=== PATIENT | female | born 2005 | race African-American/Black ===

== ENCOUNTER 2024-09-12 16:42 | Emergency (ER) | payer OTHER ==
[2024-09-12 16:53] VITALS: BP 90/52; PULSE 97; RESP 20; TEMP 98.9; BMI 24.0
[2024-09-12] MEDS ORDERED: LIDOCAINE HCL 1%, 10 MG/ML (20ML VIAL) ONE (18:45)
[2024-09-12] MEDS: LIDOCAINE HCL 1%, 10 MG/ML (50 mL VIAL) SQ ONE (18:49)
[2024-09-12] MEDS: BACITRACIN 0.9 GM PACKET TP ONE (19:25)
[2024-09-12] MEDS ORDERED: BACITRACIN ZINC 15 GM TUBE TOPICAL OINTMENT ONE (19:50)
== END 2024-09-12 19:57 | disposition home or self-care (01) ==
LOC: JER 16:42
PROC: 0H98XZZ Drainage of Buttock Skin, External Approach (ICD-10-PCS; principal; 2024-09-12)
DX: L02.31 Cutaneous abscess of buttock (principal)
CPT/HCPCS: 99284-25

== ENCOUNTER 2024-09-30 22:59 | Emergency (ER) | payer OTHER ==
[2024-09-30 23:23] VITALS: RESP 18; BMI 24.0
[2024-09-30] MEDS ORDERED: ONDANSETRON 4 MG/2 ML VIAL ONE (23:46)
[2024-09-30] MEDS ORDERED: ACETAMINOPHEN INJECTION 100 ML ONE (23:46)
[2024-10-01] MEDS: SODIUM CHLORIDE 0.9% 500 ML INFUS.BAG IV ONE (00:06)
[2024-10-01] MEDS: ACETAMINOPHEN 1000 MG/100 ML BAG IVPB ONE (00:06)
[2024-10-01] MEDS: ONDANSETRON 4 MG/2 ML VIAL IVPUSH ONE (00:08)
[2024-10-01 00:11] LABS: ABSOLUTE IMMATURE GRANULOCYTES 0.04 x10^3/uL (0.0-0.031); BASOPHILS # 0.05 x10^3/uL (0.01-0.08); EOSINOPHIL % 0.6 % (0.7-5.8); EOSINOPHILS # 0.06 x10^3/uL (0.04-0.36); HEMATOCRIT 43.1 % (34.1-44.9); HEMOGLOBIN 14.4 g/dL (11.2-15.7); MCHC 33.4 g/dl (32.2-35.5); MEAN PLT VOLUME 9.7 fl (9.4-12.3); MONOCYTE # 0.87 x10^3/uL (0.24-0.86); MONOCYTE % 8.5 % (4.7-12.5); PLATELET COUNT 376 x10^3/uL (182-369)
[2024-10-01 00:15] LABS: EPI CELLS >36 /uL (0-25.1); HYALINE CASTS 3 /uL (0-3.1); URINE APPEARANCE TURBID; URINE BACTERIA 1479 /uL (0-1359); URINE BILIRUBIN NEGATIVE (NEGATIVE); URINE COLOR YELLOW; URINE GLUCOSE (UA) NEGATIVE (NEGATIVE); URINE KETONE 3+ (NEGATIVE); URINE LEUK ESTERASE TRACE (NEGATIVE); URINE NITRITE NEGATIVE (NEGATIVE); URINE PROTEIN 1+ (NEGATIVE); URINE RBC 36 /uL (0-23.9); URINE WBC 65 /uL (0-25.8)
[2024-10-01 00:22] LABS: INR 1.19 (0.83-1.09); PROTHROMBIN TIME (PATIENT) 13.1 SEC (9.7-13.0)
[2024-10-01 00:24] LABS: ACTIVATED PTT 25.6 SECONDS (25.2-36.5)
[2024-10-01 00:30] LABS: ALBUMIN 4.5 g/dl (3.4-5.0); BLOOD UREA NITROGEN 7.8 mg/dL (7-18); MAGNESIUM 2.3 mg/dL (1.8-2.4)
[2024-10-01 00:34] LABS: BILIRUBIN,TOTAL 1.2 mg/dL (0.2-1)
[2024-10-01 00:35] LABS: TOT PROT 7.9 g/dl (6.4-8.2)
[2024-10-01 02:40] LABS: POTASSIUM 3.2 mmol/L (3.5-5.1)
[2024-10-01] MEDS: DEXTROSE 5%-WATER - 1,000 ML IV SCH (04:10)
[2024-10-01] MEDS: KETOROLAC TROMETHAMINE 15 MG/ML VIAL IVPUSH ONE (04:10)
[2024-10-01] MEDS ORDERED: KETOROLAC TROMETHAMINE 15 MG/ML VIAL ONE (04:11)
[2024-10-01 06:09] VITALS: BP 113/76; PULSE 50; TEMP 99.3
== END 2024-10-01 09:15 | disposition home or self-care (01) ==
LOC: JER 22:59
PROC: 3E033NZ Introduction of Analgesics, Hypnotics, Sedatives into Peripheral Vein, Percutaneous Approach (ICD-10-PCS; principal; 2024-09-30)
PROC: 3E033GC Introduction of Other Therapeutic Substance into Peripheral Vein, Percutaneous Approach (ICD-10-PCS; 2024-09-30)
PROC: 3E0333Z Introduction of Anti-inflammatory into Peripheral Vein, Percutaneous Approach (ICD-10-PCS; 2024-10-01)
DX: R10.84 Generalized abdominal pain (principal); R11.2 Nausea with vomiting, unspecified; R55 Syncope and collapse; R63.0 Anorexia; R10.31 Right lower quadrant pain
CPT/HCPCS: 36415; 74177-TC; 76830-TC; 80053; 81003; 83690; 83735; 84703; 85025; 85610; 85730; 86850; 86900; 86901; 87086; 93005; 93010; 99285-25; J0131

== ENCOUNTER 2025-01-10 17:35 | Emergency (ER) | payer OTHER ==
[2025-01-10 17:45] VITALS: TEMP 98.4; BMI 25.7
[2025-01-10] MEDS: LACTATED RINGERS SOLUTION 1000 ML INFUS.BAG IV ONE (18:50)
[2025-01-10 18:59] LABS: ABSOLUTE IMMATURE GRANULOCYTES 0.03 x10^3/uL (0.0-0.031); BASOPHILS # 0.03 x10^3/uL (0.01-0.08); BG HCT 45.0 % (32.4-45.2); EOSINOPHIL % 0.2 % (0.7-5.8); EOSINOPHILS # 0.02 x10^3/uL (0.04-0.36); MCHC 33.6 g/dl (32.2-35.5); MEAN CELL VOLUME 81.8 fl (79.4-94.8); MEAN PLT VOLUME 9.9 fl (9.4-12.3); MONOCYTE # 0.81 x10^3/uL (0.24-0.86); MONOCYTE % 8.3 % (4.7-12.5); RDW 12.1 % (12.0-16.2); VENOUS BASE EXCESS 0.9 mmol/L (-2-2); VENOUS O2 SATURATION 81.6 % (70-80); VENOUS PCO2 37.6 mmHg (38-52); VENOUS PH 7.438 (7.310-7.410)
[2025-01-10 19:19] LABS: TOT PROT 8.3 g/dl (6.4-8.2)
[2025-01-10 19:20] LABS: CO2 20.0 mmol/L (21-32)
[2025-01-10 19:22] LABS: ALK PHOS 74.0 U/L (40-150)
[2025-01-10 19:25] LABS: CREATININE 0.79 mg/dL (0.55-1.3); SGOT/AST 63.0 U/L (5-34); SGPT/ALT 27.0 U/L (0-55)
[2025-01-10] MEDS ORDERED: ONDANSETRON 4 MG/2 ML VIAL ONE (19:27)
[2025-01-10] MEDS: ONDANSETRON 4 MG/2 ML VIAL IVPUSH ONE (20:17)
[2025-01-10 20:22] LABS: GLUCOSE,RANDOM 115.0 mg/dL (74-106)
[2025-01-10] MEDS: SODIUM CHLORIDE 0.9% 500 ML INFUS.BAG IV ONE (20:25)
[2025-01-10 20:38] LABS: BG HCT 44.0 % (32.4-45.2); VENOUS BASE EXCESS 0.0 mmol/L (-2-2); VENOUS O2 SATURATION 78.2 % (70-80); VENOUS PCO2 36.4 mmHg (38-52); VENOUS PH 7.434 (7.310-7.410)
[2025-01-10 21:35] LABS: COCAINE, UR NEGATIVE (NEGATIVE)
[2025-01-10 21:36] LABS: METHADONE, UR NEGATIVE (NEGATIVE); OPIATES, URI NEGATIVE (NEGATIVE); PHENCYCLIDINE,URINE NEGATIVE (NEGATIVE); URINE AMPHETAMINES NEGATIVE (NEGATIVE); URINE BARBITURATES NEGATIVE (NEGATIVE); URINE BENZODIAZEPINES NEGATIVE (NEGATIVE)
[2025-01-10] MEDS: FAMOTIDINE 20 MG/50 ML IVPB 20 MG/50 ML MG IVPB ONE (22:46)
[2025-01-10] MEDS: ACETAMINOPHEN 1000 MG/100 ML BAG IVPB ONE (22:46)
[2025-01-10 22:50] VITALS: PULSE 65
[2025-01-11 16:05] VITALS: BP 139/78; RESP 22
== END 2025-01-10 23:16 | disposition left against medical advice (07) ==
LOC: JER 17:35
PROC: 3E033GC Introduction of Other Therapeutic Substance into Peripheral Vein, Percutaneous Approach (ICD-10-PCS; principal; 2025-01-10)
DX: R10.9 Unspecified abdominal pain (principal); R11.2 Nausea with vomiting, unspecified; R53.83 Other fatigue
CPT/HCPCS: 36415; 70450-TC; 71046-TC-FY; 80053; 80307; 82010; 82803; 82962; 83605; 84100; 85025; 87637-QW; 93005; 93010; 99285-25

== ENCOUNTER 2025-01-12 15:07 | Emergency (ER) | payer OTHER ==
[2025-01-12 15:18] VITALS: BP 133/81; PULSE 50; RESP 18; TEMP 98.3; BMI 23.1
[2025-01-12] MEDS ORDERED: FAMOTIDINE 20 MG/50 ML IVPB 20 MG/50 ML MG IVPB ONE (15:53)
[2025-01-12] MEDS ORDERED: HALOPERIDOL LACTATE 5 MG/ML ONE (16:16)
[2025-01-12] MEDS ORDERED: KETOROLAC TROMETHAMINE 15 MG/ML VIAL ONE (16:16)
[2025-01-12] MEDS: HALOPERIDOL LACTATE 5 MG/ML IM ONE (16:28)
[2025-01-12] MEDS: SODIUM CHLORIDE 0.9% 500 ML INFUS.BAG IV ONE (16:42)
[2025-01-12] MEDS: KETOROLAC TROMETHAMINE 15 MG/ML VIAL IVPUSH ONE (16:42)
[2025-01-12] MEDS: FAMOTIDINE 20 MG/50 ML IVPB 20 MG/50 ML MG IVPB ONE (16:42)
[2025-01-12 16:50] LABS: ABSOLUTE IMMATURE GRANULOCYTES 0.04 x10^3/uL (0.0-0.031)
[2025-01-12 16:51] LABS: TOT PROT 8.8 g/dl (6.4-8.2)
[2025-01-12 16:52] LABS: BASOPHILS # 0.04 x10^3/uL (0.01-0.08); EOSINOPHIL % 1.2 % (0.7-5.8); EOSINOPHILS # 0.12 x10^3/uL (0.04-0.36); MCHC 33.3 g/dl (32.2-35.5); MEAN CELL VOLUME 81.7 fl (79.4-94.8); MONOCYTE # 0.74 x10^3/uL (0.24-0.86); MONOCYTE % 7.7 % (4.7-12.5); RDW 11.6 % (12.0-16.2)
[2025-01-12 16:54] LABS: ALK PHOS 67 U/L (40-150)
[2025-01-12 16:56] LABS: SGOT/AST 121 U/L (5-34); SGPT/ALT 59 U/L (0-55)
[2025-01-12 16:57] LABS: CREATININE 0.64 mg/dL (0.55-1.3)
[2025-01-12 17:13] LABS: CO2 20 mmol/L (21-32); GLUCOSE,RANDOM 99 mg/dL (74-106)
== END 2025-01-12 18:01 | disposition home or self-care (01) ==
LOC: JER 15:07
PROC: 3E023GC Introduction of Other Therapeutic Substance into Muscle, Percutaneous Approach (ICD-10-PCS; principal; 2025-01-12)
DX: R11.15 Cyclical vomiting syndrome unrelated to migraine (principal)
CPT/HCPCS: 36415; 80053; 82550; 84484; 85025; 93005; 93010; 96372; 99284-25

== ENCOUNTER 2025-02-04 18:33 | Emergency (ER) | payer OTHER ==
[2025-02-04 18:40] VITALS: BP 125/77; PULSE 57; RESP 20; TEMP 98.6; BMI 20.9
[2025-02-04] MEDS ORDERED: ONDANSETRON 4 MG/2 ML VIAL ONE (19:59)
[2025-02-04] MEDS ORDERED: FAMOTIDINE 20 MG/50 ML IVPB 20 MG/50 ML MG IVPB ONE (19:59)
[2025-02-04] MEDS: SODIUM CHLORIDE 0.9% 500 ML INFUS.BAG IV ONE (20:23)
[2025-02-04] MEDS: FAMOTIDINE 20 MG/50 ML IVPB 20 MG/50 ML MG IVPB ONE (20:23)
[2025-02-04] MEDS: ONDANSETRON 4 MG/2 ML VIAL IVPUSH ONE (20:23)
[2025-02-04 20:53] LABS: ABSOLUTE IMMATURE GRANULOCYTES 0.06 x10^3/uL (0.0-0.031); BASOPHILS # 0.04 x10^3/uL (0.01-0.08); EOSINOPHIL % 0.2 % (0.7-5.8); EOSINOPHILS # 0.02 x10^3/uL (0.04-0.36); MCHC 33.5 g/dl (32.2-35.5); MEAN CELL VOLUME 81.6 fl (79.4-94.8); MEAN PLT VOLUME 10.0 fl (9.4-12.3); MONOCYTE # 1.03 x10^3/uL (0.24-0.86); MONOCYTE % 10.1 % (4.7-12.5); RDW 11.9 % (12.0-16.2)
[2025-02-04 20:58] LABS: EPI CELLS >36 /uL (0-25.1); HYALINE CASTS 5 /uL (0-3.1); URINE APPEARANCE TURBID; URINE BACTERIA 6735 /uL (0-1359); URINE BILIRUBIN NEGATIVE (NEGATIVE); URINE COLOR YELLOW; URINE GLUCOSE (UA) NEGATIVE (NEGATIVE); URINE KETONE 3+ (NEGATIVE); URINE LEUK ESTERASE 1+ (NEGATIVE); URINE NITRITE NEGATIVE (NEGATIVE); URINE PROTEIN 1+ (NEGATIVE); URINE RBC 33 /uL (0-23.9); URINE UROBILINOGEN 1.0 mg/dL (0.2-1.0); URINE WBC 191 /uL (0-25.8)
[2025-02-04 21:01] LABS: HCG,QUALITATIVE URINE NEGATIVE
[2025-02-04 21:20] LABS: GLUCOSE,RANDOM 102.0 mg/dL (74-106); TOT PROT 9.0 g/dl (6.4-8.2)
[2025-02-04 21:21] LABS: CO2 26.0 mmol/L (21-32)
[2025-02-04 21:23] LABS: ALK PHOS 86.0 U/L (40-150)
[2025-02-04 21:25] LABS: SGOT/AST 69.0 U/L (5-34); SGPT/ALT 79.0 U/L (0-55)
[2025-02-04 21:26] LABS: CREATININE 0.87 mg/dL (0.55-1.3)
[2025-02-04 21:47] LABS: HCV DIAGNOSTIC IN-HOUSE W/RFLX NON-REACTIVE (NONREACTIVE)
[2025-02-04 21:49] LABS: HIV INTERPRETATION NEGATIVE (NEGATIVE)
== END 2025-02-04 21:30 | disposition left against medical advice (07) ==
LOC: JER 18:33
PROC: 3E033GC Introduction of Other Therapeutic Substance into Peripheral Vein, Percutaneous Approach (ICD-10-PCS; principal; 2025-02-04)
PROC: 3E033GC Introduction of Other Therapeutic Substance into Peripheral Vein, Percutaneous Approach (ICD-10-PCS; 2025-02-04)
DX: R53.1 Weakness (principal); R11.2 Nausea with vomiting, unspecified
CPT/HCPCS: 36415; 80053; 81003; 82550; 82962; 83735; 84703; 85025; 86803; 87086; 87389; 99284-25